=== PATIENT | female | born 1935 ===

== ENCOUNTER 2019-05-16 09:54 | Emergency (ER) | payer MEDICARE ==
--- OUTSIDE RECORDS SUMMARY | 2019-05-16 11:50 | XMS REPORT | Continuity of Care Document ---
:1935 External Reference #:[id number] Author Name Moo Benton M.D. (transmitted by agent of provider Krissy Koehler) Address [address] [facility] [address] [place] [address] Care Team Providers Name Role Phone HCP given Care Team Information Care Information Associate Unavailable Problems Active Problems Provider Date Gastroesophageal reflux disease Moo Benton M.D. Onset: 11/04/2011 Gastro-esophageal reflux disease with Moo Benton M.D. Onset: 04/25/2015 esophagitis Marcia thyroiditis Bridgett Marques PA Onset: 01/09/2016 Right bundle branch block Bridgett Marques PA Onset: 01/09/2016 Gastro-esophageal reflux disease with Moo Benton M.D. Onset: 04/28/2018 esophagitis Social History Type Date Description Comments Sex Unknown Tobacco Use Reviewed: 04/29/19 Never Smoked Cigarettes Smoking Status Reviewed: 04/29/19 Never Smoked Cigarettes ETOH Use Denies alcohol use Exercise Type/Frequency Does not exercise Allergies, Adverse Reactions, Alerts Active Allergies Reaction Severity Comments Date NKDA 11/04/2011 Dust 11/09/2011 Medications Active Medications SIG Qnty Indications Ordering Provider Date Tumeric Unknown 04/28/2019 Vitamin D3 Unknown 04/28/2019 Omeprazole take one capsule K21.0 Unknown 04/27/[address] by mouth every day for acid reflux Fluocinonide apply a thin 30gm R21 Moo Benton, 04/24/2017 0.05% Cream layer to affected M.D. area on leg up to 2x/day as needed; for itchy rash Essential Oils lavender, Unknown 01/08/2016 wintergreen, lemon, thieves Multivitamins 1 by mouth every otc Unknown day Immunizations CPT Code Status Date Vaccine Lot # [id number] Given 04/25/2015 Prevnar 13 [id number] Given 11/04/2011 Zostavax [id number] [id number] Given 11/04/2011 Pneumococcal Immunization [id number] 09405 Given 11/04/2011 Adacel or Boostrix, TDaP [id number] Refused 04/26/2013 Flu, Split Virus 3Yrs Vital Signs Date Vital Result Comment 04/29/2019 3:29pm BP Systolic 160 mmHg BP Diastolic 80 mmHg BP Systolic Recheck 154 mmHg R arm sitting BP Diastolic Recheck 70 mmHg R arm sitting Height 64.50 inches 5'4.50" Weight 198.00 lb BMI (Body Mass Index) 33.5 kg/m2 04/28/2018 2:46pm BP Systolic 132 mmHg BP Diastolic 70 mmHg Height 64.5 inches 5'4.50" Weight 204.00 lb BMI (Body Mass Index) 34.5 kg/m2 Results Test Acquired Date Facility Test Result H/L Range Note Laboratory test 04/22/2019 [facility] TSH 5.00 Normal 0.34-5.60 finding [phone] (Thyroid mcIU/mL Stim Horm) Laboratory test 04/12/2019 [facility] TSH <pending> finding [phone] (Thyroid Stim Horm) Procedures Date Code Description Status 10/03/2011 50833891 Colonoscopy Completed Medical Devices Description No Information Available Encounters Type Date Location Provider Dx Diagnosis Office Visit 04/29/2019 Main Office Moo Benton, 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 04/29/2019 K21.0 Gastro-esophageal reflux disease with Moo Benton M.D. esophagitis 04/29/2019 I10 Essential (primary) hypertension Moo Benton M.D. 04/29/2019 R21 Rash and other nonspecific skin eruption Moo Benton M.D. 04/29/2019 Z68.33 Body mass index (BMI) 33.0-33.9, adult Moo Benton M.D. Plan of Treatment Future Appointment(s):04/30/2020 2:00 pm - Moo Benton M.D. at Main C[facility]x5304/29/2019 - Moo Benton M.D.E06.3 Autoimmune thyroiditisFollow up: RTO 1 yr. Get bloodwork the week prior.K21.0 Gastro-esophageal reflux disease with [id number] Essential (primary) hypertensionComments:She remains unwilling to consider Tx and therefore will not explore home monitoring again at this point.R21 Rash and other nonspecific skin mbttgymcV65.33 Body mass index (BMI) 33.0-33.9, adult Functional Status Description No Information Available Mental Status Description No Information Available Referrals Description No Information Available
--- OUTSIDE RECORDS SUMMARY | 2019-05-16 11:50 | XMS REPORT | Continuity of Care Document ---
:1935 External Reference #:[id number] Author Name Moo Benton M.D. 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 Unavailable Problems Active Problems Provider Date Gastroesophageal [...] CPT Code Status Date Vaccine Lot # [id number] Given 04/25/2015 Prevnar 13 [id number] [id number] Given 11/04/2011 Zostavax [id number] [id number] Given 11/04/2011 Pneumococcal Immunization [id number] 99562 Given 11/04/2011 Adacel or Boostrix, TDaP [id number] Refused 04/26/2013 Flu, Split Virus 3Yrs Vital [...] Result H/L Range Note Laboratory test 04/22/2019 [facility] TSH 5.00 Normal 0.34-5.60 finding [phone] (Thyroid mcIU/mL Stim Horm) Laboratory test 04/12/2019 [facility] TSH <pending> finding [phone] (Thyroid Stim Horm) Procedures Date Code Description Status 10/03/2011 [id number] Colonoscopy Completed Medical Devices Description No Information Available Encounters Type Date Location Provider Dx Diagnosis Office Visit 04/29/2019 Main Office Moo Benton, E06.3 Autoimmune 3:30p M.D. thyroiditis K21.0 Gastro-esophageal reflux disease with esophagitis [...] pm - Moo Benton M.D. at Main Ttpl[facility]8004/29/2019 - Moo Benton M.D.E06.3 Autoimmune thyroiditisFollow up: RTO 1 yr. Get bloodwork the week prior.K21.0 Gastro-esophageal reflux disease with [id number] Essential (primary) hypertensionComments:She remains unwilling to consider Tx and therefore will not explore home monitoring again at this point.R21 Rash and other nonspecific skin obifwrdpQ85.33 Body mass index (BMI) 33.0-33.9, adult Functional Status Description No Information Available Mental Status Description No Information Available Referrals Description No Information Available
[2019-05-16 11:56] VITALS: BP 164/84
--- NOTE | 2019-05-16 12:18 | UC ---
Eye Complaint HPI - HPI Summary HPI Summary: 83 yo female with left eye redness and discharge that started this AM no eye pain recent URI recent exposure to pink eye no fever no visual changes - History of Current Complaint Chief Complaint: UCEye Stated Complaint: LEFT EYE Time Seen by Provider: 05/16/19 11:54 Hx Obtained From: Patient Onset/Duration: Gradual Onset, Lasting Hours Severity Initially: Mild Severity Currently: None Pain Intensity: 0 Pain Scale Used: 0-10 Numeric Location of Injury: Conjunctiva Associated Signs And Symptoms: Positive: Drainage (Purulent) - Risk Factors Penetrating Injury Risk Factor: Negative Acute Glaucoma Risk Factors: Negative Optic Artery Occlusion Risk Factors: Negative - Allergies/Home Medications Allergies/Adverse Reactions: Allergies Allergy/AdvReac Type Severity Reaction Status Date / Time No Known Allergies Allergy Verified 05/16/19 11:51 Home Medications: Home Medications Cholecalciferol TAB* [Vitamin D TAB*] 1,000 unit PO DAILY 05/16/19 [History Confirmed 05/16/19] Omeprazole CAP (NF) [Prilosec CAP* 20 MG] 20 mg PO DAILY 05/16/19 [History Confirmed 05/16/19] Turmeric Root Extract [Ra Turmeric] 1,000 mg PO BID 05/16/19 [History Confirmed 05/16/19] Vitamin THERAPEUTIC TAB* [Theragran TAB*] 1 tab PO DAILY 05/16/19 [History Confirmed 05/16/19] PMH/Surg Hx/FS Hx/Imm Hx Previously Healthy: Yes - Surgical History Surgical History: Yes Surgery Procedure, Year, and Place: Bilateral Cataract Extraction, Hysterectomy , Esophageal "Stretching" - Family History Known Family History: Positive: Hypertension - Social History Alcohol Use: None Substance Use Type: None Smoking Status (MU): Never Smoked Tobacco Review of Systems All Other Systems Reviewed And Are Negative: Yes Constitutional: Positive: Negative Skin: Positive: Negative Eyes: Positive: Drainage, Eye Redness ENT: Positive: Negative, Nasal Discharge, Sinus Congestion Respiratory: Positive: Cough Cardiovascular: Positive: Negative Gastrointestinal: Positive: Negative Genitourinary: Positive: Negative Motor: Positive: Negative Neurovascular: Positive: Negative Musculoskeletal: Positive: Negative Neurological: Positive: Negative Psychological: Positive: Negative Physical Exam Triage Information Reviewed: Yes Appearance: Well-Appearing, No Pain Distress, Well-Nourished Vital Signs: Initial Vital Signs Temp 98.1 F 05/16/19 11:49 Pulse 68 05/16/19 11:49 Resp 18 05/16/19 11:49 BP 164/84 05/16/19 11:49 Pulse Ox 96 05/16/19 11:49 Vital Signs Reviewed: Yes Eyes: Positive: Conjunctiva Inflamed - L>>R, Discharge - L ENT: Positive: Hearing grossly normal, Nasal congestion, Nasal drainage Neck: Positive: Supple, Nontender, No Lymphadenopathy Respiratory: Positive: Lungs clear, Normal breath sounds, No respiratory distress, No accessory muscle use Cardiovascular: Positive: RRR, No Murmur Musculoskeletal: Positive: No Edema Neurological: Positive: Alert Psychological Exam: Normal Skin Exam: Normal Eye Complaint Course/Dx - Differential Dx/Diagnosis Provider Diagnosis: Conjunctivitis Discharge ED - Sign-Out/Discharge Documenting (check all that apply): Patient Departure All imaging exams completed and their final reports reviewed: No Studies - Discharge Plan Condition: Stable Disposition: HOME Prescriptions: Polymyx/Trimethoprim OPTH* [Polytrim OPHTH*] 1 - 2 drop BOTH EYES QID #1 btl Patient Education Materials: Conjunctivitis (ED) Referrals: Moo Benton MD [Primary Care Provider] - 4 Days (if not better) Additional Instructions: recheck for eye pain or worsening symptoms - Billing Disposition and Condition Condition: STABLE Disposition: Home
== END 2019-05-16 12:23 | disposition home or self-care (01) ==
LOC: UCCORT 09:54
DX: H10.9 Unspecified conjunctivitis (principal); R05 Cough
CPT/HCPCS: 99212; G0463